=== PATIENT | female | born 1965 | race American Indian/Alaskan Native ===

== ENCOUNTER 2024-07-29 12:57 | Inpatient (IN) | payer MEDICAID, OTHER ==
[~2024-07-29] VITALS: Ht 160 cm; Wt 104.0 kg
[~2024-07-29 12:57] MED LIST: DIPH2.5T73 PO; NOR10T PO; OMEP20CA74 PO
[2024-07-29] MEDS: MORPHINE SULFATE 4 MG/ML SYR/VIAL IV ONE (13:45)
--- NOTE | 2024-07-29 13:49 | ED.PDOC ---
History of Present Illness HPI Comments 59 Y F with PMHX of colorectal cancer and PUD, presents to the ED with CC of generalized weakness. Patient states, that she has been experiencing a persistent cough with associated symptoms of fever, dizziness, vomiting, and rectal pain x8 days. Patient states, that she has experienced these symptoms before 17 years ago when she was diagnosed with colorectal cancer. Patient smokes tobacco and, consumes ETOH occasionally, and smokes marijuana occasionally. Patient denies fever chills, body aches, or N/V/D. Chief Complaint: General Weakness Time Seen by MD: 13:20 Primary Care Provider: WANDA Reviewed Notes: Nurses Notes, Medications, Allergies Allergies: Coded Allergies: Latex (Unverified Allergy, Intermediate, 08/31/14) Coconut Flavor (Unverified Allergy, Unknown, all coconut derivatives, 08/30/14) Coconut Oil (Verified Allergy, Unknown, 08/30/14) Influenza Vaccines (Verified Allergy, Unknown, 08/01/15) Sodium Hypochlorite (Verified Allergy, Unknown, 'BLEACH', 08/30/14) Home Meds Reported Medications Hydrocodone-Acetaminophen ([place] 10/325MG) 1 Tab Tb, 1 TAB PO TID PRN for PAIN, #90 TAB 08/01/15 Omeprazole (PRILOSEC) 20 Mg Cap, 1 CAP PO DAILY 11/23/14 Diphenoxylate W/ Atropine (Lomotil) 2.5 Mg Tab, 1 TAB PO DAILY PRN for FOR DIARRHEA 11/23/14 Information Source: Patient Mode of Arrival: Wheelchair Severity: Moderate Timing: Days Prehospital treatment: None Past Medical History PAST MEDICAL HISTORY: Cancer, PUD Surgical History: Hysterectomy FIREWOOD CUTTER History: No Pertinent FIREWOOD CUTTER History Family History Family History: Unobtainable Social History Smoker: Non-Smoker, Quit Less Than 1 Year Alcohol: Rarely Drugs: Marijuana Lives In: Home Constitutional: reports: fever; denies: chills, diaphoresis, fatigue, malaise, sweats, weakness, others EENTM: denies: blurred vision, double vision, ear bleeding, ear discharge, ear drainage, ear pain, ear ringing, eye pain, eye redness, hearing loss, mouth pain, mouth swelling, nasal discharge, nose bleeding, nose congestion, nose pain, photophobia, tearing, throat pain, throat swelling, voice changes, others Respiratory: reports: cough; denies: hemoptysis, orthopnea, SOB at rest, shortness of breath, SOB with excertion, stridor, wheezing, others Cardiovascular: denies: chest pain, dizzy spells, diaphoresis, Dyspnea on exertion, edema, irregular heart beat, left arm pain, lightheadedness, palpitations, PND, syncope, others Gastrointestinal: reports: vomiting; denies: abdomen distended, abdominal pain, blood streaked bowels, constipated, diarrhea, dysphagia, difficulty swallowing, hematemesis, melena, nausea, poor appetite, poor fluid intake, rectal bleeding, rectal pain, others Genitourinary: denies: abnormal vagina bleeding, burning, dyspareunia, dysuria, flank pain, frequency, hematuria, incontinence, pain, , vagina discharge, urgency, others Neurological: reports: dizziness; denies: fainting, headache, left sided numbness, left sided weakness, numbness, paresthesia, pre-existing deficit, right sided numbness, right sided weakness, seizure, speech problems, tingling, tremors, weakness, others Musculoskeletal: denies: back pain, gout, joint pain, joint swelling, muscle pain, muscle stiffness, neck pain, others Integumetry: denies: bruises, change in color, change in hair/nails, dryness, laceration, lesions, lumps, rash, wounds, others Allergic/Immunocompromised: denies: Difficulty Healing, Frequent Infections, Hives, Itching, others Hematologic/Lymphatic: denies: anemia, blood clots, easy bleeding, easy bruising, swollen glands, others Endocrine: denies: excessive hunger, excessive sweating, excessive thirst, excessive urination, flushing, intolerance to cold, intolerance to heat, unexplained weight gain, unexplained weight loss, others Psychiatric: denies: anxiety, bipolar disorder, depression, hopeless, panic disorder, schizophrenia, sleepless, suicidal, others All Other Systems: Reviewed and Negative Physical Exam General Appearance: Moderate Distress HEENT: Normal ENT Inspection, Pharynx Normal, TMs Normal Neck: Full Range of Motion, Non-Tender, Normal, Normal Inspection Respiratory: Chest Non-Tender, Lungs Clear, No Accessory Muscle Use, No Respi ratory Distress, Normal Breath Sounds Cardiovascular: No Edema, No JVD, No Murmur, No Gallop, Normal Peripheral Pulses, Regular Rate/Rhythm Breast Exam: Deferred Gastrointestinal: No Organomegaly, No Pulsatile Mass, Normal Bowel Sounds, Soft, Other (Ileostomy in place) Genitalia: Deferred Pelvic: Deferred Rectal: Deferred Extremities: No calf tenderness, Normal capillary refill, Normal inspection, Normal range of motion, Non-tender, No pedal edema Musculoskeletal : Apperance: Normal Neurologic: Alert, roll former II-XII nml as Tested, Motor Weakness, Normal Affect, N ormal Mood, No Sensory Deficits Cerebellar Function: Normal Reflexes: Normal Skin: Dry, Pallor, Warm Lymphatic: No Adenopathy Was a procedure done? Was a procedure done?: No Differential Dx Considerations may include: gastritis, viral, bacterial, pneumonia, flu X-Ray, Labs, Meds, VS Vital Signs Date Time Temp Pulse Resp B/P (MAP) Pulse Ox O2 Delivery O2 Flow Rate FiO2 07/29/24 20:39 Room Air* 0 21 07/29/24 19:30 97.9 69 10 98/60 (73) 94 97.9 07/29/24 16:00 64 14 98/41 (60) 98 07/29/24 15:00 64 14 98 Room Air* 0 21 07/29/24 14:20 97.8 60 13 92/61 (71) 95 97.8 07/29/24 13:24 97.5 75 17 95/65 (75) 98 07/29/24 13:04 82 Lab Test 07/29/24 13:56 Range/Units White Blood Count 6.6 4.4-10.8 10^3/uL Red Blood Count 5.26 H 4.0-5.20 10^6/uL Hemoglobin 15.6 12.2-16.2 g/dL Hematocrit 45.3 36.0-46.0 % Mean Corpuscular Volume 86.1 80.0-100.0 fL Mean Corpuscular Hemoglobin 29.7 28.0-32.0 pg Mean Corpuscular Hemoglobin Concent 34.5 32.0-36.0 g/dL Red Cell Distribution Width 13.5 11.8-14.3 % Platelet Count 216 140-450 10^3/uL Mean Platelet Volume 8.3 6.9-10.8 fL Neutrophils (%) (Auto) 62.6 37.0-80.0 % Lymphocytes (%) (Auto) 26.2 10.0-50.0 % Monocytes (%) (Auto) 9.3 0.0-12.0 % Eosinophils (%) (Auto) 1.2 0.0-7.0 % Basophils (%) (Auto) 0.7 0.0-2.0 % Neutrophils # (Auto) 4.1 1.6-8.6 10 ^3/uL Lymphocytes # (Auto) 1.7 0.4-5.4 10 ^3/uL Monocytes # (Auto) 0.6 0-1.3 10 ^3/uL Eosinophils # (Auto) 0.1 0-0.8 10 ^3/uL Basophils # (Auto) 0 0-0.2 10 ^3/uL Nucleated Red Blood Cells 0.2 % Sodium Level 136 136-145 mmol/L Potassium Level 4.1 3.5-5.1 mmol/L Chloride Level 108 H 98-107 mmol/L Carbon Dioxide Level 20 20-31 mmol/L Anion Gap 8 5-15 Blood Urea Nitrogen 25 H 9-23 mg/dL Creatinine 1.51 H 0.550-1.02 mg/dL Glomerular Filtration Rate Calc 40 >90 mL/min BUN/Creatinine Ratio 16.6 10.0-20.0 Serum Glucose 115 H 74-106 mg/dL Calcium Level 9.4 8.7-10.4 mg/dL Current Medications Medications (Trade) Dose Ordered Sig/Yuni Route Start Time Stop Time Status Last Admin Sodium Chloride 500 ml @ 500 mls/hr Q1H ONCE IV 07/29/24 13:45 07/29/24 14:44 DC 07/29/24 14:20 Ondansetron HCl (Zofran) 4 mg ONCE ONCE IV 07/29/24 13:45 07/29/24 13:46 DC 07/29/24 14:20 Sodium Chloride 500 ml @ 500 mls/hr Q1H ONCE IV 07/29/24 18:30 07/29/24 19:29 DC 07/29/24 18:40 Sodium Chloride 500 ml @ 500 mls/hr Q1H ONCE IV 07/29/24 20:00 07/29/24 20:59 07/29/24 20:25 IV Hep-Lock was established The patient was given normal saline at a 500 cc bolus The patient was given Zofran 4 mg IV push We have repeated the bolus of normal saline x2 to address the patient's blood pressure The CBC is within normal limits The chemistry panel shows a BUN of 25 and a creatinine of 1.51 At this time, the patient was being admitted to the hospitalist. Time of 1ST Reevaluation: 13:50 Reevaluation 1ST: Unchanged Patient Education/Counseling: Diagnosis, Treatment, Prognosis Family Education/Counseling: No Family Present Additional Information - I reviewed the following notes from patient's past medical encounters: 09/25/15 DX: NEPHROSTOMY TUBE DISPLACED - The following tests were ordered, and results were reviewed by me: EKG, LABS - I discussed treatments and results with medical personnel and: PATIENT Departure 1 Departure Time of Disposition: 20:52 Impression: Primary Impression: Generalized weakness Additional Impression: Dehydration Disposition: ADMITTED INPATIENT Admit to: Tele Condition: Fair Critical Care Note Critical Care Time?: No Stability Stability form required: Yes Unstable for transfer: Telemetry monitoring (Telemetry monitoring required), ED Physician Assesment (Clinical assesment) Heart Score Heart Score: Heart Score Response (Comments) Value History N/A 0 EKG N/A 0 Age N/A 0 Risk Factors N/A 0 Troponin N/A 0 Total 0 I personally scribed for VELASQUEZ CHRISTY MD ([email or web address]) on 07/29/24 at 13:49. Electronically submitted by Ema Delvalle ([email or web address]). I personally scribed for VELASQUEZ CHRISTY MD ([email or web address]) on 07/29/24 at 16:48. Electronically submitted by Ema Delvalle ([email or web address]). VELASQUEZ CHRISTY MD Jul 29, 2024 13:49
[2024-07-29 14:12] LABS: Basophils # (auto) 0 10 ^3/uL (0-0.2); Basophils % (auto) 0.7 % (0.0-2.0); Eosinophils # (auto) 0.1 10 ^3/uL (0-0.8); Eosinophils % (auto) 1.2 % (0.0-7.0); Hematocrit 45.3 % (36.0-46.0); Hemoglobin 15.6 g/dL (12.2-16.2); Lymphocytes # (auto) 1.7 10 ^3/uL (0.4-5.4); Lymphocytes % (auto) 26.2 % (10.0-50.0); Mean Corpuscular Hemoglobin 29.7 pg (28.0-32.0); Mean Corpuscular Hgb Conc. 34.5 g/dL (32.0-36.0); Mean Corpuscular Volume 86.1 fL (80.0-100.0); Monocytes # (auto) 0.6 10 ^3/uL (0-1.3); Monocytes % (auto) 9.3 % (0.0-12.0); Neutrophils # (auto) 4.1 10 ^3/uL (1.6-8.6); Neutrophils % (auto) 62.6 % (37.0-80.0); Nucleated Red Blood Cells % 0.2 %; Platelet Count (auto) 216 10^3/uL (140-450); Red Blood Cells 5.26 10^6/uL (4.0-5.20); Red Cell Distribution Width 13.5 % (11.8-14.3); White Blood Cell 6.6 10^3/uL (4.4-10.8)
[2024-07-29 14:20] LABS: Potassium 4.1 mmol/L (3.5-5.1); Sodium 136 mmol/L (136-145)
[2024-07-29] MEDS: SODIUM CHLORIDE 0.9% 500 ML IV ONE ×3 (14:20→20:25)
[2024-07-29] MEDS: ONDANSETRON HCL 4 MG/2 ML VIAL IV ONE (14:20)
[2024-07-29 14:21] LABS: Anion Gap 8 (5-15); Calcium 9.4 mg/dL (8.7-10.4); Carbon Dioxide 20 mmol/L (20-31); Chloride 108 mmol/L (98-107)
[2024-07-29 14:26] LABS: BUN/Creatinine Ratio 16.6 (10.0-20.0)
[2024-07-29 14:43] LABS: Blood Urea Nitrogen 25 mg/dL (9-23); Glucose 115 mg/dL (74-106)
[2024-07-29 15:00] VITALS: PULSE 64; RESP 14; O2SAT 98
[2024-07-29] MEDS: KETOROLAC TROMETH 30 MG/ML 1ML VIAL IV ONE (20:00)
--- NOTE | 2024-07-29 21:30 | DVHHPRES ---
History of Present Illness Resident Creating Document: ALISSON HARP RESIDENT History of Present Illness Patient is 59-year-old female with past medical history of rectal cancer status post resection/radiation therapy 18 years ago, history of nephrostomy tube, presence of ileostomy bag came to the hospital with a chief complaint of generalized weakness. As per patient she started feeling weak for past few days, she had few episodes of nausea and vomiting and she started having rectal pain in last two days. As per patient she had this similar kind of pain while she was diagnosed with rectal cancer 18 years ago. Patient denied any other symptoms at this point including fever, chills, shortness of breath, chest pain, abdominal pain, any other symptoms. However patient mentioned that when she had vomiting, she might have a few drops of blood within it but no profuse bleeding. No any other complaints Past Medical History Displaced left nephrostomy tube. History of rectal cancer, status post colectomy and ileostomy. Morbid obesity. Peptic ulcer disease Past Surgical History Right ileostomy Rectum resection Family History: None Smoke: No ALCOHOL: none Drugs: None Lives: with Family Review of Systems Review of Systems Patient complaining of mild rectal pain, nausea and vomiting. Patient denied any other symptoms. Allergies: Coded Allergies: Latex (Unverified Allergy, Intermediate, 08/31/14) Coconut Flavor (Unverified Allergy, Unknown, all coconut derivatives, 08/30/14) Coconut Oil (Verified Allergy, Unknown, 08/30/14) Influenza Vaccines (Verified Allergy, Unknown, 08/01/15) Sodium Hypochlorite (Verified Allergy, Unknown, 'BLEACH', 08/30/14) Exam Vital Signs Vital Signs Date Time Temp Pulse Resp B/P (MAP) Pulse Ox O2 Delivery O2 Flow Rate FiO2 07/29/24 20:39 Room Air* 0 21 07/29/24 19:30 97.9 69 10 98/60 (73) 94 97.9 Exam General Appearance: Cooperative. Well developed. Well nourished. NAD Head Exam: Normal inspection Neck Exam: Normal inspection. Non-tender. Normal alignment Pulmonary/Respiratory: Chest non-tender. Clear bilateral breath sounds Cardiovascular/Chest: Regular rate and rhythm. No murmurs. No JVD. Peripheral Pulses: 2+ Radial (R). 2+ Radial (L). 2+ Pedal (R). 2+ Pedal (L) Abdominal Exam: Normal bowel sounds. Soft. Nontender. No hepatospenomegaly. No masses, presence of ileostomy with bag filled with with stool. Ankle Exam: Negative ankle edema Lower extremities: Negative lower extremity edema Neuro/Mental Status: A&O x4. Coherent Thoughts/Psych: Normal thought pattern. Appropriate mood and affect. Good judgement and insight Appearance: In no acute distress Skin Exam: Normal inspection. Normal color. Warm. Dry Labs/Xrays Labs Test 07/29/24 13:56 Range/Units White Blood Count 6.6 4.4-10.8 10^3/uL Red Blood Count 5.26 H 4.0-5.20 10^6/uL Hemoglobin 15.6 12.2-16.2 g/dL Hematocrit 45.3 36.0-46.0 % Mean Corpuscular Volume 86.1 80.0-100.0 fL Mean Corpuscular Hemoglobin 29.7 28.0-32.0 pg Mean Corpuscular Hemoglobin Concent 34.5 32.0-36.0 g/dL Red Cell Distribution Width 13.5 11.8-14.3 % Platelet Count 216 140-450 10^3/uL Mean Platelet Volume 8.3 6.9-10.8 fL Neutrophils (%) (Auto) 62.6 37.0-80.0 % Lymphocytes (%) (Auto) 26.2 10.0-50.0 % Monocytes (%) (Auto) 9.3 0.0-12.0 % Eosinophils (%) (Auto) 1.2 0.0-7.0 % Basophils (%) (Auto) 0.7 0.0-2.0 % Neutrophils # (Auto) 4.1 1.6-8.6 10 ^3/uL Lymphocytes # (Auto) 1.7 0.4-5.4 10 ^3/uL Monocytes # (Auto) 0.6 0-1.3 10 ^3/uL Eosinophils # (Auto) 0.1 0-0.8 10 ^3/uL Basophils # (Auto) 0 0-0.2 10 ^3/uL Nucleated Red Blood Cells 0.2 % Sodium Level 136 136-145 mmol/L Potassium Level 4.1 3.5-5.1 mmol/L Chloride Level 108 H 98-107 mmol/L Carbon Dioxide Level 20 20-31 mmol/L Anion Gap 8 5-15 Blood Urea Nitrogen 25 H 9-23 mg/dL Creatinine 1.51 H 0.550-1.02 mg/dL Glomerular Filtration Rate Calc 40 >90 mL/min BUN/Creatinine Ratio 16.6 10.0-20.0 Serum Glucose 115 H 74-106 mg/dL Calcium Level 9.4 8.7-10.4 mg/dL Assessment/Plan Assessment/Plan Generalized weakness likely due to dehydration Myalgia RADHA hemodynamically mediated likely due to dehydration Rectal pain Periumbilical hernia Nausea and vomiting with possible upper GI bleed Morbid obesity History of peptic ulcer disease History of rectal cancer status post resection and chemotherapy Presence of ileostomy bag Plan/recommendation -IV hydration with IV fluid normal saline 75 mL/hour, IV bolus has been given. -CT scan abdomen showed periumbilical hernia , no obstruction. -nausea vomiting under control, pending stool occult, consider GI consultation if it came positive. -IV Protonix 40 mg once daily, -clear liquid diet -chest x-ray clear -hold DVT prophylaxis for possible GI bleed, consider SCD Goals of care discussed greater than 22 minutes, full code status. Plan discussed with Dr. Carter Plan discussed with: Patient, Other (RN) My Orders Orders - ALISSON HARP Procedure Category Date Status Time Admit ADMIT 07/29/24 Transmitted 21:25 Ct Ab Pel Wo Con-No CT 07/29/24 Logged Oral Or Iv 21:26 Urinalysis LAB 07/29/24 Transmitted 21:26 Drug Screen LAB 07/29/24 Transmitted 21:26 Stool Occult Blood LAB 07/29/24 Transmitted 21:26 Thyroid Stimulating LAB 07/29/24 Transmitted Hormone 21:26 Rapid Influenza A&B LAB 07/29/24 Transmitted 21:26 Covid19 Antigen [place] LAB 07/29/24 Transmitted Chest Xray 1 View XY 07/29/24 Logged 21:26 NS PHA 07/29/24 Transmitted 21:30 B-Type Natriuretic LAB 07/29/24 Transmitted Peptide 21:26 Ondansetron Hcl PHA 07/29/24 Transmitted (Zofran) 21:30 [place] 5/325mg PHA 07/29/24 Transmitted 21:30 Date of Service: Jul 29, 2024 Billing Provider: JIMENA CARTER MD Common Visit Codes: [id number] INP/OBS CARE (HIGH) ALISSON HARP RESIDENT Jul 29, 2024 21:30 JIMENA CARTER MD Jul 30, 2024 20:57
[2024-07-29 22:35] LABS: Urine Bacteria FEW /hpf (None Seen); Urine Blood Negative /uL (Negative); Urine Clarity Clear (Clear); Urine Color Light-Yellow (Yellow); Urine Hyaline Cast FEW /lpf (0 - 2); Urine Protein, UAD Negative (Negative); Urine Specific Gravity 1.012 (1.001-1.035); Urine Squamous Epithelial Cell FEW /hpf (<5); Urine Urobilinogen Normal (Negative); Urine WBC 10 /hpf (0 - 5)
[2024-07-29] MEDS: SODIUM CHLORIDE 0.9% 1,000 ML IV SCH (22:40)
[2024-07-29] MEDS: HYDROcodone-ACET 5/325MG TAB PO PRN (22:41)
[2024-07-29 22:45] LABS: Cannabinoid Screen, Urine Pos (NEGATIVE)
--- NOTE | 2024-07-29 22:45 | DVH ---
CHEST RADIOGRAPH Indication: pneumonia Technique: Single frontal view of the chest was obtained Comparison: None FINDINGS: Lines and Tubes: None Lungs: Clear Pleura: No effusion. No pneumothorax. Cardiomediastinal contours: Unremarkable Bones: Unremarkable IMPRESSION: Clear lungs.
[2024-07-29 22:47] LABS: Amphetamine Screen, Urine Neg (NEGATIVE); Barbiturate Scree,Urine Neg (NEGATIVE); Benzodiazephine Screen, Urine Neg (NEGATIVE); Cocaine Screen, Urine Neg (NEGATIVE); Opiate Scree,Urine Neg (NEGATIVE); Phencyclidine Screen, Urine Neg (NEGATIVE)
[2024-07-29 22:48] LABS: COVID19 ANTIGEN SOFIA FIA NEGATIVE (NEGATIVE); Rapid Influenza A Negative (Negative); Rapid Influenza B Negative (Negative)
--- NOTE | 2024-07-29 23:07 | DVH ---
Exam: CT CT AB PEL WO CON-NO ORAL OR IV History: rectal pain history of rectal cancer Comparison Study: None available at time of dictation. TECHNIQUE: Multidetector CT of the abdomen was performed from lung bases to pubic symphysis. Imaging was performed without IV contrast. Axial, coronal and sagittal multiplanar reformats were obtained fr om the axial data set by the technologist. Radiation Dose Information: CT Dose: CTDI volume is 22.66 mGy. Dose-length product is 1372.18 mGy*cm FINDINGS: Evaluation of solid organs is limited due to lack of intravenous contrast use. Findings: Lung Bases: No acute or significant lung base finding. Normal heart size. No pleural or pericardial effusion. Liver: The liver is normal in size. No focal lesions. Gallbladder and Biliary Tree: Unremarkable Spleen: Unremarkable Pancreas: The pancreas is grossly normal in appearance. Adrenal Glands: 3.8 cm nodule left adrenal gland with tissue density measuring -6.7 hounsfield units Kidneys: Kidneys are grossly normal without calculi or hydronephrosis. 7-8 mm left renal cyst Bladder: Grossly unremarkable for degree of distention. Bowel: The stomach is grossly normal in appearance. Small bowel and colon are normal in caliber and d istribution. The appendix is not visualized; however, no secondary findings of acute appendicitis id entified. Ascites: Absent Lymphadenopathy: No mesenteric, retroperitoneal or periportal lymphadenopathy. Abdominal Wall and Mesentery: 6.5 cm fat containing umbilical hernia. 9.5 x 7 cm right fat containin g hernia adjacent to the ileostomy stoma in the right anterior abdomen. containing fat and a loop of small bowel Vasculature: The visualized abdominal aorta is normal in size and caliber. Evaluation of abdominal a nd pelvic vessels is limited due to lack of intravenous contrast. Pelvic Organs: Unremarkable Musculoskeletal: No aggressive focal bony lesions, acute fractures or dislocation. Soft tissues: Unremarkable IMPRESSION: 1. 6.5 cm paraumbilical hernia fat containing 2. Ileostomy in the right anterior abdominal wall with large fat containing hernia adjacent to the st antonella and loop of ileum. Radiation optimization: All CT scans at this facility use at least one of these dose optimization te chniques: automated exposure control mA and/or kV adjustment per patient size (includes targeted exa ms where dose is matched to clinical indication) or iterative reconstruction.
[2024-07-30] VITALS (8 sets, daily range): BP systolic 76–119; BP diastolic 32–53; PULSE 55–68; RESP 14–18; TEMP 97.7–98.8; O2SAT 92–98
[2024-07-30] MEDS: PANTOPRAZOLE 40 MG/10 ML VIAL INJ IV ONE (02:29)
[2024-07-30] MEDS ORDERED: CHOL20007 OR (03:30)
[2024-07-30] MEDS ORDERED: ATOR10TA PO (03:30)
[2024-07-30] MEDS: ONDANSETRON HCL 4 MG/2 ML VIAL IV PRN (04:15)
--- NOTE | 2024-07-30 07:44 | ECG ---
[facility] Test Date: 2024-07-29 Test Time: 13:04:57 Pat Name: MAHSA HUNTER Department: ER Room: 0298 B Gender: F Human Resource Analyst: LINDA : 1965 Requested By: VELASQUEZ CHRISTY Order Number: [id number] Reading MD: Jameson Em Measurements Intervals [place] Rate: 82 P: 0 CA: 0 QRS: 109 QRSD: 114 T: 73 QT: 375 QTc: 438 Interpretive Statements Atrial flutter Probable inferior infarct, old Electronically Signed On 07-30-2024 13:12:19 PST by Jameson Em Please click the below link to view image of tracing.
[2024-07-30 08:53] LABS: Basophils # (auto) 0 10 ^3/uL (0-0.2); Basophils % (auto) 0.6 % (0.0-2.0); Eosinophils # (auto) 0.1 10 ^3/uL (0-0.8); Eosinophils % (auto) 2.1 % (0.0-7.0); Hematocrit 41.3 % (36.0-46.0); Hemoglobin 14.1 g/dL (12.2-16.2); Lymphocytes # (auto) 2.2 10 ^3/uL (0.4-5.4); Lymphocytes % (auto) 37.9 % (10.0-50.0); Mean Corpuscular Hemoglobin 29.6 pg (28.0-32.0); Mean Corpuscular Hgb Conc. 34.1 g/dL (32.0-36.0); Mean Corpuscular Volume 86.8 fL (80.0-100.0); Monocytes # (auto) 0.6 10 ^3/uL (0-1.3); Monocytes % (auto) 10.1 % (0.0-12.0); Neutrophils # (auto) 2.9 10 ^3/uL (1.6-8.6); Neutrophils % (auto) 49.3 % (37.0-80.0); Nucleated Red Blood Cells % 0.2 %; Platelet Count (auto) 213 10^3/uL (140-450); Red Blood Cells 4.76 10^6/uL (4.0-5.20); Red Cell Distribution Width 13.4 % (11.8-14.3); White Blood Cell 5.8 10^3/uL (4.4-10.8)
[2024-07-30] MEDS: PANTOPRAZOLE 40 MG/10 ML VIAL INJ IV SCH (08:53)
[2024-07-30 08:55] LABS: Potassium 4.6 mmol/L (3.5-5.1); Sodium 140 mmol/L (136-145)
[2024-07-30 08:56] LABS: Anion Gap 8 (5-15); Carbon Dioxide 20 mmol/L (20-31)
[2024-07-30 09:01] LABS: BUN/Creatinine Ratio 14.6 (10.0-20.0); Blood Urea Nitrogen 15 mg/dL (9-23); Glucose 85 mg/dL (74-106)
[2024-07-30 09:08] LABS: Chloride 112 mmol/L (98-107)
[2024-07-30] MEDS: SODIUM CHLORIDE 0.9% 500 ML IV ONE (15:00)
--- NOTE | 2024-07-30 15:38 | DVHPNRES ---
Progress Note Date Seen: Jul 30, 2024 Resident Creating Document: KALEN AWAN RESIDENT Medical Necessity Reason Pt with a Central, PICC or Fol: No Subjective Review of Systems Patient is a 59-year-old female with past medical history of hypertension, rectal carcinoma s/p resection and radiation therapy 18 years ago with a right ileostomy in place, status post nephrostomy tube for 8-10 years, peptic ulcer disease, who came in due to generalized weakness. According to the patient, starting 07/22/2024 she started feeling weakness, unable to stand up, difficulty walking to the bathroom. Patient also notes that 1 week ago she started developing flu-like symptoms including cough, runny nose, congestion, fever and also notes feeling increasing confusion. Moreover, patient states experiencing rectal pain 7/10 in intensity, similar to the rectal pain she experienced when she 1st got diagnosed with rectal carcinoma. CT abdomen pelvis showed 6.5 cm paraumbilical hernia fat containing. A lot ileostomy in right anterior abdominal wall with large fat containing hernia adjacent to stoma and loop of ileum. Past surgical history: Proctectomy colectomy, hysterectomy Home medications: Lisinopril, Protonix Past Hospitalization: 5-6 years ago for nephrostomy infection Social & Personal history: Patient lives with her siblings. Smokes 1 pack of cigarettes per week for the last 4 years. Uses marijuana daily. Denies using alcohol. Allergies: Coconut, influenza vaccine, latex. Patient seen and examined at bedside. Patient is alert and oriented to time, place person and responding to all questions. General: Fatigue, fever, chills Eyes: No Pain, No Vision change, No Conjunctivae inflammation, No Eyelid inflammation, No Other, No Redness ENT: No Ear pain, No Ear discharge, No Nose pain, rhinorrhea, congestion, sore throat, No Mouth pain, No Mouth swelling, No Throat pain, No Throat swelling, No Other Cardiovascular: No Chest Pain, No Palpitations, No Orthopnea, No Paroxysmal No Dyspnea, No Edema, No Lt Headedness, No Other Respiratory: Cough, No Dry, No Shortness of breath, No SOB with exertion, No Wheezing, No Hemoptysis, No Pleuritic Pain, No Sputum, No Other Gastrointestinal: No Nausea, Vomiting, No Abdominal Pain, No Diarrhea, No Constipation, No Melena, No Hematochezia, No Other Genitourinary: No Dysuria, No Frequency, No Incontinence, No Hematuria, No Retention, No Other Musculoskeletal: No other, No neck pain, No shoulder pain, No arm pain, No back pain, No hand pain, No leg pain, No foot pain Skin: No Rash, No Lesions, No Jaundice, No Bruising, No Other Psychiatric: Reports feeling depressed and anxious. Denies having any suicidal ideation. Objective vital signs Vital Sign Date Time Temp Pulse Resp B/P (MAP) Pulse Ox O2 Delivery O2 Flow Rate FiO2 07/30/24 14:25 97.7 58 16 119/50 (73) 92 97.7 07/30/24 08:00 Room Air* 0 21 Total Intake and Output 07/29/24 07/29/24 07/30/24 15:00 23:00 07:00 Intake Total 762 ml Balance 762 ml medications Current Medications Medications Dose Ordered Sig/Yuni Route Start Time Stop Time Status Last Admin Dose Admin Ondansetron HCl 4 mg Q4HPRN PRN IV 07/29/24 21:30 07/30/24 04:15 4 MG Acetaminophen/ Hydrocodone Bitart 1 tab Q6HPRN PRN PO 07/29/24 21:30 07/30/24 04:15 1 TAB Pantoprazole Sodium 40 mg DAILY IV 07/30/24 10:00 07/30/24 08:53 40 MG Ceftriaxone Sodium 50 ml @ 100 mls/hr DAILY@09 IV 07/31/24 09:00 Examination General Appearance: Cooperative. Well developed. Well nourished. NAD Head Exam: Normal inspection Neck Exam: Normal inspection. Non-tender. Normal alignment Pulmonary/Respiratory: Chest non-tender. Clear bilateral breath sounds, no crackles, no wheezing. Cardiovascular/Chest: Regular rate and rhythm. No murmurs. No JVD. Peripheral Pulses: 2+ Radial (R). 2+ Radial (L). 2+ Pedal (R). 2+ Pedal (L) Abdominal Exam: Normal bowel sounds. Soft. Right anterior abdominal wall ileostomy noted, periumbilical hernia noted, no visible veins, Nontender. No hepatospenomegaly. No masses Ankle Exam: Negative ankle edema Lower extremities: Negative lower extremity edema Neuro/Mental Status: A&O x4. Coherent. Thoughts/Psych: Normal thought pattern. Appropriate mood and affect. Good judgement and insight Skin Exam: Normal inspection. Normal color. Warm. Dry Rectal exam: Skin breaks noted around anal site which is closed laboratory and microbiology Laboratory Tests 07/30/24 08:28 Test 07/30/24 08:28 Range/Units Serum Glucose 85 74-106 mg/dL Labs and/or images reviewed: Labs reviewed by me, Image(s) reviewed by me Problem List/Assessment/Plan Problem List/Assessment/Plan Perineal cellulitis/erysipelas with skin break Generalized weakness likely due to above Dehydration - CT abdomen pelvis: 6.5 cm periumbilical hernia fat containing. Ileostomy in the right anterior abdominal wall with large fat containing hernia adjacent to the stoma and loop of ileum. - IV NS 500 cc bolus - ordered wound consult Peptic ulcer disease - IV Protonix 40 mg daily RADHA likely hemodynamically mediated/VMN and possible CKD - 500 cc NS bolus - monitor Umbilical hernia, stable Abdominal wall hernia, stable - monitor Acute complicated UTI - IV ceftriaxone Goals of care: Full code, discussed for >16 minutes on 07/30/2024 Plan discussed with patient Plan discussed with Dr. Sam Plan discussed with: Patient, Other (RN) My Orders My Orders Orders - KALEN AWAN Procedure Category Date Status Time * Wound Consult CONS 07/30/24 Transmitted Sodium Chloride 0.9% PHA 07/30/24 In Process 15:00 Ceftriaxone 1gm/50ml PHA 07/31/24 In Process D5w (Rocephin) 09:00 Ceftriaxone 1gm/50ml PHA 07/30/24 In Process D5w (Rocephin) 15:30 Date of Service: Jul 30, 2024 Billing Provider: BROOKE SAM MD Common Visit Codes: [id number] INP/OBS CARE(HIGH) KALEN AWAN Jul 30, 2024 15:38 BROOKE SAM MD Aug 04, 2024 17:29
[2024-07-30] MEDS: cefTRIAXone 1GM/50ML D5W 50 ML IV ONE (16:11)
[2024-07-31] VITALS (7 sets, daily range): BP systolic 90–110; BP diastolic 42–56; PULSE 60–81; RESP 16–18; TEMP 98–98.7; O2SAT 94–99
[2024-07-31] MEDS ORDERED: ACETAMINOPHEN 325 MG TAB PO PRN (04:45)
[2024-07-31 08:32] LABS: Anion Gap 6 (5-15); Carbon Dioxide 21 mmol/L (20-31); Potassium 4.4 mmol/L (3.5-5.1); Sodium 141 mmol/L (136-145)
[2024-07-31 08:33] LABS: Calcium 8.9 mg/dL (8.7-10.4)
[2024-07-31 08:38] LABS: BUN/Creatinine Ratio 7.9 (10.0-20.0); Blood Urea Nitrogen 9 mg/dL (9-23)
[2024-07-31 08:39] LABS: Chloride 114 mmol/L (98-107)
[2024-07-31 08:40] LABS: Glucose 90 mg/dL (74-106)
[2024-07-31] MEDS: cefTRIAXone 1GM/50ML D5W 50 ML IV SCH (10:33)
[2024-07-31] MEDS ORDERED: CYCLOBENZAPRINE HCL 10 MG TAB PO PRN (11:15)
[2024-07-31] MEDS: SODIUM CHLORIDE 0.9% 500 ML IV ONE (12:27)
--- NOTE | 2024-07-31 14:44 | DVHPNRES ---
Progress Note Date Seen: Jul 31, 2024 Resident Creating Document: KALEN AWAN RESIDENT Medical Necessity Reason Pt with a Central, PICC or Fol: No Subjective Review of Systems Patient is a 59-year-old female with past medical history of hypertension, rectal carcinoma s/p resection and radiation therapy 18 years ago with a right ileostomy in place, status post nephrostomy tube for 8-10 years, peptic ulcer disease, who came in due to generalized weakness. According to the patient, starting 07/22/2024 she started feeling weakness, unable to stand up, difficulty walking to the bathroom. Patient also notes that 1 week ago she started developing flu-like symptoms including cough, runny nose, congestion, fever and also notes feeling increasing confusion. Moreover, patient states experiencing rectal pain 7/10 in intensity, similar to the rectal pain she experienced when she 1st got diagnosed with rectal carcinoma. CT abdomen pelvis showed 6.5 cm paraumbilical hernia fat containing. A lot ileostomy in right anterior abdominal wall with large fat containing hernia adjacent to stoma and loop of ileum. Past surgical history: Proctectomy colectomy, hysterectomy Home medications: Lisinopril, Protonix Past Hospitalization: 5-6 years ago for nephrostomy infection Social & Personal history: Patient lives with her siblings. Smokes 1 pack of cigarettes per week for the last 4 years. Uses marijuana daily. Denies using alcohol. Allergies: Coconut, influenza vaccine, latex. Patient seen and examined at bedside. Patient is alert and oriented to time, place person and responding to all questions. Patient is reporting improved rectal pain today. New paraspinal tenderness noted. Objective vital signs Vital Sign Date Time Temp Pulse Resp B/P (MAP) Pulse Ox O2 Delivery O2 Flow Rate FiO2 07/31/24 09:00 98.0 61 16 103/56 (72) 94 98.0 07/31/24 08:00 Room Air* 0 21 Total Intake and Output 07/30/24 07/30/24 07/31/24 15:00 23:00 07:00 Intake Total 1550 ml 400 ml Balance 1550 ml 400 ml medications Current Medications Medications Dose Ordered Sig/[place] Route Start Time Stop Time Status Last Admin Dose Admin Ondansetron HCl 4 mg Q4HPRN PRN IV 07/29/24 21:30 07/31/24 12:28 4 MG Acetaminophen/ Hydrocodone Bitart 1 tab Q6HPRN PRN PO 07/29/24 21:30 07/31/24 12:28 1 TAB Pantoprazole Sodium 40 mg DAILY IV 07/30/24 10:00 07/31/24 10:33 40 MG Ceftriaxone Sodium 50 ml @ 100 mls/hr DAILY@09 IV 07/31/24 09:00 07/31/24 10:33 100 MLS/HR Acetaminophen 650 mg Q6HP PRN PO 07/31/24 04:45 Cyclobenzaprine HCl 5 mg Q8HPRN PRN PO 07/31/24 11:15 Examination General Appearance: Cooperative. Well developed. Well nourished. NAD Head Exam: Normal inspection Neck Exam: Normal inspection. Non-tender. Normal alignment Pulmonary/Respiratory: Chest non-tender. Clear bilateral breath sounds, no crackles, no wheezing. Cardiovascular/Chest: Regular rate and rhythm. No murmurs. No JVD. Peripheral Pulses: 2+ Radial (R). 2+ Radial (L). 2+ Pedal (R). 2+ Pedal (L) Abdominal Exam: Normal bowel sounds. Soft. Right anterior abdominal wall ileostomy noted, periumbilical hernia noted, no visible veins, Nontender. No hepatospenomegaly. No masses Ankle Exam: Negative ankle edema Lower extremities: Negative lower extremity edema Neuro/Mental Status: A&O x4. Coherent. Thoughts/Psych: Normal thought pattern. Appropriate mood and affect. Good judgement and insight Skin Exam: Normal inspection. Normal color. Warm. Dry Rectal exam: Skin breaks noted around anal site which is closed laboratory and microbiology Laboratory Tests 07/31/24 07:23 07/30/24 08:28 Test 07/31/24 07:23 Range/Units Serum Glucose 90 74-106 mg/dL Labs and/or images reviewed: Labs reviewed by me, Image(s) reviewed by me Problem List/Assessment/Plan Problem List/Assessment/Plan Perineal cellulitis/erysipelas with skin break Generalized weakness likely due to above Dehydration - CT abdomen pelvis: 6.5 cm periumbilical hernia fat containing. Ileostomy in the right anterior abdominal wall with large fat containing hernia adjacent to the stoma and loop of ileum. - IV NS 500 cc bolus - ordered wound consult - advanced to a full liquid diet - IV NS 500 cc bolus Paraspinal muscle spasm - cyclobenzaprine 5 mg Q 8 hours as needed Peptic ulcer disease - IV Protonix 40 mg daily RADHA likely hemodynamically mediated/VMN and possible CKD - 500 cc NS bolus - monitor Umbilical hernia, stable Abdominal wall hernia, stable - monitor Acute complicated UTI - IV ceftriaxone Goals of care: Full code, discussed for >16 minutes on 07/30/2024 Plan discussed with patient Plan discussed with Dr. Sam Plan discussed with: Patient, Other (RN) My Orders My Orders Orders - KALEN AWAN RESIDENT Procedure Category Date Status Time * Wound Consult CONS 07/30/24 Transmitted Ceftriaxone 1gm/50ml PHA 07/31/24 In Process D5w (Rocephin) 09:00 Cyclobenzaprine PHA 07/31/24 In Process Tablet (Flexeril 11:15 Up To Chair DENNYS 07/31/24 In Process 11:03 Cleanse Wound With Ns DENNYS 07/31/24 In Process 11:14 Full Liq Diet DIET 07/31/24 Transmitted Dinner Date of Service: Jul 31, 2024 Billing Provider: BROOKE SAM MD Common Visit Codes: [id number] INP/OBS CARE(HIGH) KALEN AWAN Jul 31, 2024 14:44 BROOKE SAM MD Aug 04, 2024 17:30
[2024-08-01 01:00] VITALS: BP 110/54; PULSE 70; RESP 18; TEMP 98.6; O2SAT 98
[2024-08-01 05:00] VITALS: BP 107/50; PULSE 72; RESP 18; TEMP 98.2; O2SAT 96
[2024-08-01 07:50] LABS: Potassium 4.7 mmol/L (3.5-5.1); Sodium 138 mmol/L (136-145)
[2024-08-01 07:51] LABS: Anion Gap 5 (5-15); Calcium 9.1 mg/dL (8.7-10.4); Carbon Dioxide 21 mmol/L (20-31)
[2024-08-01 07:53] LABS: Chloride 112 mmol/L (98-107)
[2024-08-01 07:56] LABS: Glucose 85 mg/dL (74-106)
[2024-08-01 07:58] LABS: BUN/Creatinine Ratio 4.5 (10.0-20.0); Blood Urea Nitrogen < 5 mg/dL (9-23)
[2024-08-01 08:20] VITALS: PULSE 58; RESP 20; O2SAT 97
[2024-08-01 08:30] VITALS: BP 110/64; PULSE 58; RESP 20; TEMP 98.2; O2SAT 97
[2024-08-01 08:35] LABS: Basophils # (auto) 0 10 ^3/uL (0-0.2); Basophils % (auto) 0.3 % (0.0-2.0); Eosinophils # (auto) 0.2 10 ^3/uL (0-0.8); Hematocrit 38.5 % (36.0-46.0); Hemoglobin 12.9 g/dL (12.2-16.2); Lymphocytes # (auto) 1.8 10 ^3/uL (0.4-5.4); Mean Corpuscular Hemoglobin 29.3 pg (28.0-32.0); Mean Corpuscular Hgb Conc. 33.4 g/dL (32.0-36.0); Mean Corpuscular Volume 87.6 fL (80.0-100.0); Monocytes # (auto) 0.4 10 ^3/uL (0-1.3); Monocytes % (auto) 7.6 % (0.0-12.0); Neutrophils # (auto) 3.2 10 ^3/uL (1.6-8.6); Neutrophils % (auto) 56.1 % (37.0-80.0); Nucleated Red Blood Cells % 0.1 %; Platelet Count (auto) 239 10^3/uL (140-450); Red Blood Cells 4.39 10^6/uL (4.0-5.20); Red Cell Distribution Width 13.6 % (11.8-14.3); White Blood Cell 5.8 10^3/uL (4.4-10.8)
[2024-08-01 13:00] VITALS: BP 134/58; PULSE 58; RESP 18; TEMP 97.9; O2SAT 98
[2024-08-01] MEDS ORDERED: AUG875T PO (16:17)
[2024-08-01] MEDS ORDERED: MUPI2OIN2 EX (16:17)
[2024-08-01] MEDS ORDERED: NYS15PW TOP (16:19)
[2024-08-01 16:30] VITALS: BP 107/50; PULSE 58; RESP 17; TEMP 98.3; O2SAT 96
--- NOTE | 2024-08-01 21:51 | DVHDSRES ---
Discharge Summary Date of Admission Resident Creating Document: RAVINDER CHICAS Jul 29, 2024 at 21:25 Date of Discharge: Aug 01, 2024 Labs/Diagnostic Data: Laboratory Results Test 08/01/24 08:02 08/01/24 07:18 07/30/24 05:30 07/29/24 22:10 White Blood Count 5.8 10^3/uL (4.4-10.8) Red Blood Count 4.39 10^6/uL (4.0-5.20) Hemoglobin 12.9 g/dL (12.2-16.2) Hematocrit 38.5 % (36.0-46.0) Mean Corpuscular Volume 87.6 fL (80.0-100.0) Mean Corpuscular Hemoglobin 29.3 pg (28.0-32.0) Mean Corpuscular Hemoglobin Concent 33.4 g/dL (32.0-36.0) Red Cell Distribution Width 13.6 % (11.8-14.3) Platelet Count 239 10^3/uL (140-450) Mean Platelet Volume 8.1 fL (6.9-10.8) Neutrophils (%) (Auto) 56.1 % (37.0-80.0) Lymphocytes (%) (Auto) 32.0 % (10.0-50.0) Monocytes (%) (Auto) 7.6 % (0.0-12.0) Eosinophils (%) (Auto) 4.0 % (0.0-7.0) Basophils (%) (Auto) 0.3 % (0.0-2.0) Neutrophils # (Auto) 3.2 10 ^3/uL (1.6-8.6) Lymphocytes # (Auto) 1.8 10 ^3/uL (0.4-5.4) Monocytes # (Auto) 0.4 10 ^3/uL (0-1.3) Eosinophils # (Auto) 0.2 10 ^3/uL (0-0.8) Basophils # (Auto) 0 10 ^3/uL (0-0.2) Nucleated Red Blood Cells 0.1 % Sodium Level 138 mmol/L (136-145) Potassium Level 4.7 mmol/L (3.5-5.1) Chloride Level 112 mmol/L (98-107) Carbon Dioxide Level 21 mmol/L (20-31) Anion Gap 5 (5-15) Blood Urea Nitrogen < 5 mg/dL (9-23) Creatinine 1.12 mg/dL (0.550-1.02) Glomerular Filtration Rate Calc 57 mL/min (>90) BUN/Creatinine Ratio 4.5 (10.0-20.0) Serum Glucose 85 mg/dL (74-106) Calcium Level 9.1 mg/dL (8.7-10.4) Stool Occult Blood Negative (Negative) Stool Occult Blood Sample #3 (Negative) Urine Color Light-yellow (Yellow) Urine Clarity Clear (Clear) Urine pH 5.0 (5.0-9.0) Urine Specific [place] 1.012 (1.001-1.035) Urine Protein Negative (Negative) Urine Ketones Trace (Negative) Urine Blood Negative /uL (Negative) Urine Nitrite Negative (Negative) Urine Bilirubin Negative (Negative) Urine Urobilinogen Normal mg/dL (Negative) Urine Leukocyte Esterase 2+ /uL (Negative) Urine RBC 1 /hpf (0 - 4) Urine WBC 10 /hpf (0 - 5) Urine Squamous Epithelial Cells Few /hpf (<5) Urine Bacteria Few /hpf (None Seen) Urine Hyaline Casts Few /lpf (0 - 2) Urine Glucose Normal mg/dL (Normal) Urine Opiates Screen Neg (NEGATIVE) Urine Fentanyl Screen Neg (NEGATIVE) Urine Barbiturates Screen Neg (NEGATIVE) Urine Phencyclidine Screen Neg (NEGATIVE) Urine Amphetamines Screen Neg (NEGATIVE) Urine Benzodiazepines Screen Neg (NEGATIVE) Urine Cocaine Screen Neg (NEGATIVE) Urine Cannabinoids Screen Pos (NEGATIVE) Test 07/29/24 22:00 07/29/24 13:56 Influenza Type A Antigen Negative (Negative) Influenza Type B Antigen Negative (Negative) SARS-CoV-2 Antigen (Rapid) Negative (NEGATIVE) B-Type Natriuretic Peptide 6.06 pg/mL (0-100) Thyroid Stimulating Hormone (TSH) 0.84 uIU/mL (0.55-4.78) Other Laboratory Tests 08/01/24 08:02 08/01/24 07:18 Brief Hx & Hospital Course: 59-year-old female with past medical history of hypertension, rectal carcinoma s/p resection and radiation therapy 18 years ago with a right ileostomy in place, status post nephrostomy tube for 8-10 years, peptic ulcer disease, who came in due to generalized weakness. According to the patient, starting 07/22/2024 she started feeling weakness, unable to stand up, difficulty walking to the bathroom. Patient also notes that 1 week ago she started developing flu- like symptoms including cough, runny nose, congestion, fever and also notes feeling increasing confusion. Moreover, patient states experiencing rectal pain 7/10 in intensity, similar to the rectal pain she experienced when she 1st got diagnosed with rectal carcinoma. CT abdomen pelvis showed 6.5 cm paraumbilical hernia fat containing. A lot ileostomy in right anterior abdominal wall with large fat containing hernia adjacent to stoma and loop of ileum. Physical examination revealed Right anterior abdominal wall ileostomy noted, periumbilical hernia noted,Skin breaks noted around anal site which is closed. Patient was started on IV fluids, IV protonix, IV ceftriaxone. Urine routine showed evidence of the UTI Patient mentioned improvement in her symptoms during the hospital course. At the time of discharge, patient was stable vitals, no new complaints. Discharge plan was discussed with the patient and patient was advised to follow up with PCP within one week. Patient was advised prescribed with Augmentin, mupirocin and nystatin powder. Condition at Discharge: Stable Final Diagnosis/Problems List Perineal Cellulitis/erysipelas with skin break Generalized weakness likely due to above Dehydration Paraspinal muscle spasm RADHA likely hemodynamically mediated/VMN and possible CKD UTI Hypertension Rectal carcinoma s/p resection and radiation therapy s/p ileostomy Umbilical hernia, stable Abdominal wall hernia, stable Peptic ulcer disease Discharge Disposition: Home Discharge Instruct/Medications Diet: Regular Activity: No Restrictions, As Tolerated Follow Up/Referral: DC clinic within 1 week Discharge Statement: "Patient was advised to return to the ER or call 911 if any headaches, dizziness, shortness of breath, chest pain, abdominal pain, bleeding, fevers, or worsening of medical condition. Patient was counseled about treatment plan, medications, possible side effects, patientverbalized understanding. All questions were answered to the best of my ability. This discharge took greater then 30 minutes in planning, reviewing documentation, counseling the patient, and discussing with other team members." ASSESSMENT ASSESSMENT Assessment Perineal Cellulitis Date of Service: Aug 01, 2024 Billing Provider: BROOKE SAM MD Common Visit Codes: [id number] DISCH DAY >30min RAVINDER CHICAS Aug 01, 2024 21:51 BROOKE SAM MD Aug 04, 2024 17:30
[2024-08-01] MEDS ORDERED: NYSTATIN TOPICAL POWDER 15GM TOP SCH (22:00)
== END 2024-08-01 18:34 | disposition home or self-care (01) | DRG 383 ==
LOC: ER 12:57 → OVERFLOW 21:25 → WEST WING 23:41
PROVIDERS: ADMIT Student in an Organized Health Care Education/Training Program; ATTEND Student in an Organized Health Care Education/Training Program
DX: L03.315 Cellulitis of perineum (principal); N17.0 Acute kidney failure with tubular necrosis; E86.0 Dehydration; K62.89 Other specified diseases of anus and rectum; N39.0 Urinary tract infection, site not specified; K42.9 Umbilical hernia without obstruction or gangrene; E66.01 Morbid (severe) obesity due to excess calories; I12.9 Hypertensive chronic kidney disease with stage 1 through stage 4 chronic kidney disease, or unspecified chronic kidney disease; N18.9 Chronic kidney disease, unspecified; A46 Erysipelas; M62.830 Muscle spasm of back; Z90.710 Acquired absence of both cervix and uterus; Z85.048 Personal history of other malignant neoplasm of rectum, rectosigmoid junction, and anus; Z87.11 Personal history of peptic ulcer disease; Z68.41 Body mass index [BMI] 40.0-44.9, adult; Z79.899 Other long term (current) drug therapy
CPT/HCPCS: 36415; 71045; 74176; 80048; 80307; 81001; 82270; 83880; 84443; 85025; 87426; 87804; 93005; 97163; G0378; J1885; J2405; J2470